=== PATIENT | female | born 1945 | race American Indian/Alaskan Native ===

== ENCOUNTER 2021-12-11 13:02 | Outpatient (CLI) | payer MEDICARE ==
[2021-12-11 14:13] LABS: Blood Urea Nitrogen 21 mg/dL (7-17)
--- NOTE | 2021-12-11 15:20 | Cat Scan Report ---
CT CHEST WITH CONTRAST INDICATION / CLINICAL INFORMATION: F17.200 NICOTINE DEPENDENCE. TECHNIQUE: Axial CT images were obtained through the chest after 100 cc of Omnipaque [address] scans at this location are performed using CT dose reduction for ALARA by means of automated exposure control. COMPARISON: None available. FINDINGS: HEART: No significant abnormality. CORONARY ARTERY CALCIFICATION: Present -- Severe. THORACIC AORTA: Mild atherosclerotic calcification without acute abnormality. MEDIASTINUM / ZAHRAA: No significant abnormality. PLEURA: No pleural effusion. No pneumothorax. LUNGS: No acute air space or interstitial disease. Moderate to severe centrilobular and paraseptal em physematous changes are identified in the upper lung zones. There is mild biapical scarring. No suspi cious nodule or mass is detected. ADDITIONAL FINDINGS: None. UPPER ABDOMEN: Few scattered liver cysts are present, otherwise unremarkable. SKELETAL SYSTEM: No significant abnormality. IMPRESSION: Moderate to severe emphysematous changes. Severe coronary artery calcifications. Signer Name: Keyon Martinez Jr, MD Signed: 12/11/2021 3:16 PM Workstation Name: [id number]
== END 2021-12-11 13:03 | disposition home or self-care (01) ==
LOC: CT 13:02
PROVIDERS: ATTEND Internal Medicine
DX: J43.9 Emphysema, unspecified (principal); F17.200 Nicotine dependence, unspecified, uncomplicated; I25.10 Atherosclerotic heart disease of native coronary artery without angina pectoris; Z12.2 Encounter for screening for malignant neoplasm of respiratory organs; F17.210 Nicotine dependence, cigarettes, uncomplicated; K76.89 Other specified diseases of liver
CPT/HCPCS: 36415; 71260; 82565; 84520; Q9967